=== PATIENT | male | born 1970 | race Caucasian/White ===

== ENCOUNTER 2022-05-18 07:40 | Day surgery (SDC) | payer OTHER | END 2022-05-18 15:35 | disposition home or self-care (01) | LOC: AMB-ENDOS 07:40 → ADM 09:45 → AMB-ENDOS 09:45 | PROVIDERS: ATTEND Colon & Rectal Surgery | DX: D12.8 Benign neoplasm of rectum (principal); K64.4 Residual hemorrhoidal skin tags ==